=== PATIENT | female | born 1945 | race Caucasian/White ===

== ENCOUNTER 2018-09-29 13:43 | Emergency (ER) | payer MEDICARE, MEDICAID ==
[~2018-09-29] VITALS: Ht 160 cm; Wt 65.0 kg
[2018-09-29 17:11] LABS: CLARITY URINE CLEAR (CLEAR); COLOR URINE YELLOW (YELLOW); KETONES URINE NEGATIVE (NEGATIVE); LEUKOCYTE ESTERASE URINE NEGATIVE (NEGATIVE); NITRITE URINE NEGATIVE (NEGATIVE); OCCULT BLOOD URINE NEGATIVE (NEGATIVE); PROTEIN URINE NEGATIVE (NEGATIVE); SPECIFIC GRAVITY URINE 1.014 (1.005-1.030); UROBILINOGEN URINE 0.2 E.U./dL (0.2-1.0)
[2018-09-29 17:50] LABS: BASOPHILS % 1.2 % (0.0-2.0); EOSINOPHILS % 4.9 % (0.0-5.0); HEMATOCRIT. 40.6 % (36.0-48.0); HEMOGLOBIN. 13.4 g/dL (12.0-16.0); MEAN CORPUSCULAR HEMOGLOBIN 29.5 pg (28.0-32.0); MEAN CORPUSCULAR VOLUME 89.4 fL (81.0-99.0); MEAN PLATELET VOLUME 9.9 fl (7.4-10.4); MONOCYTES % 5.6 % (2.0-8.0); NEUTROPHILS % 52.3 % (40.0-76.0); PLATELET 187 x1000/uL (130-400); RED BLOOD CELL COUNT 4.54 mill/uL (4.2-5.4); RED CELL DISTRIBUTION WIDTH 14.4 % (11.6-14.6)
[2018-09-29 17:55] LABS: CHLORIDE 106 mEq/L (98-107)
[2018-09-29 17:56] LABS: PROTHROMBIN TIME 10.5 sec (9.1-11.1)
[2018-09-29] MEDS ORDERED: ACETAMINOPHEN 325MG TABLET PO ONE (19:30)
[2018-09-29 20:30] VITALS: BP 142/74
== END 2018-09-29 20:47 | disposition home or self-care (01) ==
LOC: ER 14:11
DX: L91.8 Other hypertrophic disorders of the skin (principal); L98.9 Disorder of the skin and subcutaneous tissue, unspecified; R10.32 Left lower quadrant pain; E11.9 Type 2 diabetes mellitus without complications
CPT/HCPCS: 36415; 74176; 99284

== ENCOUNTER 2019-02-14 16:10 | Emergency (ER) | payer MEDICARE, MEDICAID ==
[~2019-02-14] VITALS: Ht 154.9 cm; Wt 65.0 kg
[2019-02-14] MEDS: ACETAMINOPHEN 325MG TABLET PO ONE (16:55)
[2019-02-14 18:09] VITALS: BP 112/78
== END 2019-02-14 18:11 | disposition home or self-care (01) ==
LOC: ER 17:22
DX: S82.001A Unspecified fracture of right patella, initial encounter for closed fracture (principal); E11.9 Type 2 diabetes mellitus without complications; W18.39XA Other fall on same level, initial encounter; Y93.89 Activity, other specified; Y92.89 Other specified places as the place of occurrence of the external cause; Y99.8 Other external cause status
CPT/HCPCS: 73562; 99283

== ENCOUNTER 2019-04-08 18:04 | Emergency (ER) | payer MEDICARE, MEDICAID ==
[~2019-04-08] VITALS: Ht 152.4 cm; Wt 65.0 kg
[2019-04-09 01:14] VITALS: BP 96/51
== END 2019-04-09 01:15 | disposition home or self-care (01) ==
LOC: ER 18:04
DX: S06.0X0A Concussion without loss of consciousness, initial encounter (principal); M54.5 Low back pain; M54.2 Cervicalgia; E11.9 Type 2 diabetes mellitus without complications; I10 Essential (primary) hypertension; E78.00 Pure hypercholesterolemia, unspecified; W19.XXXA Unspecified fall, initial encounter; Y93.89 Activity, other specified; Y92.89 Other specified places as the place of occurrence of the external cause; Y99.8 Other external cause status
CPT/HCPCS: 71111; 72070; 72100; 99284

== ENCOUNTER 2022-06-09 15:46 | Emergency (ER) | payer MEDICARE, MEDICAID ==
[~2022-06-09] VITALS: Ht 152.4 cm; Wt 51.0 kg
[2022-06-09 15:57] VITALS: BP 132/72
== END 2022-06-10 07:03 | disposition left against medical advice (07) ==
LOC: ER 15:46
DX: Z53.21 Procedure and treatment not carried out due to patient leaving prior to being seen by health care provider (principal); R00.0 Tachycardia, unspecified; E11.9 Type 2 diabetes mellitus without complications; I10 Essential (primary) hypertension; E78.00 Pure hypercholesterolemia, unspecified
CPT/HCPCS: 93005

== ENCOUNTER 2025-04-27 11:48 | Emergency (ER) | payer MEDICARE, MEDICAID ==
[~2025-04-27] VITALS: Ht 152.4 cm; Wt 55.0 kg
[2025-04-27 12:07] VITALS: BP 124/91; PULSE 108; RESP 18; TEMP 36.9; O2SAT 98
[2025-04-27] MEDS ORDERED: AMOX1TAB16 MT (13:46)
[2025-04-27] MEDS ORDERED: BO1 TP (13:46)
== END 2025-04-27 14:22 | disposition home or self-care (01) ==
LOC: ER 12:05
DX: L03.011 Cellulitis of right finger (principal); I10 Essential (primary) hypertension; E78.00 Pure hypercholesterolemia, unspecified; E11.9 Type 2 diabetes mellitus without complications; Z79.899 Other long term (current) drug therapy
CPT/HCPCS: 10060; 99283

== ENCOUNTER 2025-06-03 08:01 | Emergency (ER) | payer MEDICARE, MEDICAID ==
[~2025-06-03] VITALS: Ht 152.4 cm; Wt 70.0 kg
[~2025-06-03 08:01] MED LIST: AMOX1TAB16 MT; BO1 TP
[2025-06-03 08:12] VITALS: O2SAT 98
[2025-06-03] MEDS: KETOROLAC 30MG/ML VIAL IM ONE (09:20)
[2025-06-03 09:21] LABS: BASOPHILS % 0.9 % (0.0-2.0); EOSINOPHILS % 1.4 % (0.0-5.0); HEMATOCRIT. 43.8 % (36.0-48.0); HEMOGLOBIN. 14.4 g/dL (12.0-16.0); LYMPHOCYTES % 26.8 % (20.0-50.0); MEAN PLATELET VOLUME 10.7 fl (7.4-10.4); MONOCYTES % 3.8 % (2.0-8.0); NEUTROPHILS % 67.1 % (40.0-76.0); PLATELET 192 x1000/uL (130-400); RED BLOOD CELL COUNT 4.67 mill/uL (4.2-5.4); RED CELL DISTRIBUTION WIDTH 14.7 % (11.6-14.6)
[2025-06-03 09:42] LABS: CREATININE 0.8 mg/dL (0.6-1.0); UREA NITROGEN BLOOD 7 mg/dL (9-23)
[2025-06-03] MEDS ORDERED: CLOT45CR62 VG (11:06)
[2025-06-03] MEDS ORDERED: ESTR42.510 VG (11:06)
[2025-06-03] MEDS ORDERED: FLUCONAZOLE 50MG TABLET PO ONE (11:15)
[2025-06-03 11:18] LABS: CLARITY URINE CLEAR (CLEAR); COLOR URINE YELLOW (YELLOW); GLUCOSE URINE 3+ (NEGATIVE); KETONES URINE NEGATIVE (NEGATIVE); LEUKOCYTE ESTERASE URINE NEGATIVE (NEGATIVE); NITRITE URINE NEGATIVE (NEGATIVE); OCCULT BLOOD URINE NEGATIVE (NEGATIVE); PH URINE 5.5 (4.5-8.0); PROTEIN URINE NEGATIVE (NEGATIVE); SPECIFIC GRAVITY URINE 1.034 (1.005-1.030); UROBILINOGEN URINE 0.2 E.U./dL (0.2-1.0)
[2025-06-03 11:29] LABS: RBC URINE 0-2 /hpf (0-2); WBC URINE 0-2 /hpf (0-2)
[2025-06-03 11:30] LABS: YEAST URINE 1+
[2025-06-03 11:31] LABS: BACTERIA URINE 1+
[2025-06-03] MEDS: FLUCONAZOLE 150MG TABLET PO SCH (12:12)
[2025-06-03 12:13] VITALS: BP 130/60; PULSE 71; RESP 18; TEMP 36.7; O2SAT 98
== END 2025-06-03 12:15 | disposition home or self-care (01) ==
LOC: ER 08:01
DX: N95.2 Postmenopausal atrophic vaginitis (principal); B37.31 Acute candidiasis of vulva and vagina; E11.9 Type 2 diabetes mellitus without complications; E78.00 Pure hypercholesterolemia, unspecified; I10 Essential (primary) hypertension; Z90.49 Acquired absence of other specified parts of digestive tract; Z98.890 Other specified postprocedural states
CPT/HCPCS: 99285; 74176; 80048; 81003; 85025; 36415; 96372; J1885